=== PATIENT | female | born 1965 | race Caucasian/White ===

== ENCOUNTER → 2017-04-28 | Outpatient (CLI) | payer MEDICAID ==
[~2017-04-28] MED LIST: ALBU6.7H INH; ALBUS PO; ATEN25TA PO; BACL10TA PO; CLON0.5T PO; CYAN25005 PO; CYMB60CA PO; DAPA1TAB3 PO; DIAZ5 PO; DICL50TA PO; DICL75TA PO; FENO145T2 PO; FLUT1SPR5 EACH NARE; FLUTI110I INH; FLUTI220I INH; GABA800T PO; HUMI40KI SQ; IBUP200T2 PO; LEVO25TA4 PO; LYRI100C PO; MELO7.5T4 PO; METF850 PO; METH750T PO; MODA200T12 PO; MONT10TA2 PO; NIAC500T5 PO; OLAN5TAB PO; PANTANASE NASAL; PATA0.6S NASAL; PRAV80TA2 PO; SPIRCAP INH; SULF500T PO; VOLT1GEL4 TOPICAL; WELLTAB39 PO; ZETI10TA5 PO
[2017-04-28 11:30] LABS: HEMATOCRIT 44.7 % (35.0-46.0); MEAN CELL VOLUME 90.4 FL (80.0-100.0); MEAN CORPUSCULAR HEMOGLOBIN 29.6 PG (27.0-34.0); MEAN CORPUSCULAR HGB CONC 32.7 % (32.0-36.0); PLATELET COUNT 440 TH/MM3 (150-450); RED BLOOD COUNT 4.94 MIL/MM3 (4.00-5.30); WHITE BLOOD COUNT 29.5 TH/MM3 (4.0-11.0)
[2017-04-28 11:33] LABS: HEMO FLAGS AUTO DIFF
[2017-04-28 12:04] LABS: NEUTROPHIL # MANUAL DIFF 22.4 TH/MM3 (1.8-7.7); PLATELET ESTIMATE SMEAR NORMAL (NORMAL); PLATELET MORPHOLOGY NORMAL (NORMAL); POLYS (SEG NEUTROPHILS) 76 % (16-70); SCAN/DIFF FINAL DIFF MANUAL; WBC DIFF SAMPLE 100
--- NOTE | 2017-04-29 08:41 | EKG ---
Date Performed: 04/28/2017 Time Performed: 11:04:16 PTAGE: 51 years EKG: SINUS BRADYCARDIA MODERATE INTRAVENTRICULAR CONDUCTION DELAY BORDERLINE ECG NO PREVIOUS TRACING DOCTOR: Altaf Najera Interpretating Date/Time 04/29/2017 08:35:00
== END ==
LOC: PHPRE 10:17
PROVIDERS: ATTEND Orthopaedic Surgery
DX: Z01.812 Encounter for preprocedural laboratory examination (principal); Z01.810 Encounter for preprocedural cardiovascular examination; R94.31 Abnormal electrocardiogram [ECG] [EKG]
CPT/HCPCS: 36415; 85007; 85027; 93005

== ENCOUNTER → 2017-05-01 | Day surgery (SDC) | payer MEDICAID ==
[~2017-05-01] VITALS: Ht 162.6 cm; Wt 63.0 kg
[~2017-05-01] MED LIST changes: +ACETAMINOPHEN/HYDROcodone 325 MG/5 MG TAB PO PRN; -ALBUS PO; +BUPIVACAINE/EPINEPHRINE 0.5% PF 10 ML VIAL INFIL ONE; +CHLORHEXIDINE GLUCONATE 2 % 1 PACK (2 CLOTHS) TOPICAL PRN; +CHLORHEXIDINE GLUCONATE 4% SOLN 120 ML BTL TOPICAL SCH; -CYAN25005 PO; -DIAZ5 PO; +FAMOTIDINE 20 MG/2 ML VIAL ONE; -FLUT1SPR5 EACH NARE; -FLUTI110I INH; -GABA800T PO; -IBUP200T2 PO; +INSULIN HUMAN REGULAR 1,000 UNITS/10 ML VIAL SQ PRN; +KETOROLAC TROMETHAMINE 30 MG/ML (IVP) VIAL IM PRN; +LACTATED RINGER'S 1000 ML IV PRN; -MELO7.5T4 PO; -METF850 PO; -METH750T PO; +METOPROLOL TARTRATE 25 MG TAB PO PRN; +MIDAZOLAM HCL 2 MG/2 ML VIAL ONE; -MODA200T12 PO; -MONT10TA2 PO; +NEOSTIGMINE 3 MG/3 ML SYR IV ONE; -NIAC500T5 PO; +ONDANSETRON HCL 4 MG/2 ML VIAL IV PUSH ONE; +ONDANSETRON HCL 4 MG/2 ML VIAL IV PUSH PRN; -PANTANASE NASAL; +POVIDONE IODINE 5% (ANTISEPSIS KIT) 4 APPLICATIONS EACH NARE PRN; +PROPOFOL 200 MG/20 ML AMP IV ONE; +SODIUM CHLORID 0.9% 500 ML IV PRN; -SULF500T PO; +VANCOMYCIN 1000 MG/NS 250 ML (for <70 kg) IV SCH; +ceFAZolin 2 GM PREMIX 50 ML IV SCH; +fentaNYL CITRATE 250 MCG/5 ML AMP ONE
[2017-05-01 09:55] VITALS: BP 122/70; PULSE 59; RESP 20; TEMP 97.9; O2SAT 97
[2017-05-01 12:28] VITALS: BP 121/66; PULSE 68; RESP 16; TEMP 98; O2SAT 99
--- NOTE | 2017-05-03 06:18 | MP ---
cc: DUSTIN SOTO M.D. DATE OF SURGERY: 05/01/2017 PREOPERATIVE DIAGNOSIS Tear rotator cuff right shoulder. POSTOPERATIVE DIAGNOSIS Tear rotator cuff right shoulder. PROCEDURE Anterior decompression with repair of rotator cuff avulsion. SURGEON: Dr. Dustin Soto DETAILS OF PROCEDURE: The patient was placed on the operating table in the supine position. Adequate general anesthesia was administered by the anesthesiologist. The patient was then placed in a modified beach-chair position and the right shoulder was prepped and draped in the usual sterile fashion. A 1-inch incision was made over the acromial process following a subcutaneous injection of a few cc's of 0.5% Marcaine with epinephrine. Subcutaneous tissue was incised down to the underlying fascia which was also incised and the deltoid insertion along the anterior border of the acromial process was identified and transected at its point of origin, protecting the underlying soft tissue and coracoacromial ligament with a retractor. The remaining subdeltoid bursa was excised as well as the remnants of the coracoacromial ligament which was thickened. The acromial process was then decompressed with a partial acromioplasty utilizing a high-speed power bur protecting the underlying rotator cuff. We were now able to expose the full rotator cuff by rotation. She did have a full avulsion of the supraspinatus and this was repairable and could be brought back down to the greater tuberosity. A bioabsorbable corkscrew anchor was placed in the area of insertion and the #2 FiberWire attached to the anchor was passed through the rotator cuff in a [id number] fashion using both sutures. A watertight closure was obtained. The area was thoroughly irrigated and the deltoid muscle reinserted with #1 Tycron. Subcutaneous tissue was closed with interrupted 3-0 Vicryl and skin edges approximated with a running subcuticular 4-0 Vicryl. We then placed some additional Marcaine since she did not have a block, totaling 10 cc of 0.5% with epinephrine. The skin edges were approximated with subcuticular 4-0 Vicryl and the Steri-Strips were applied over that. Small dressing was applied over the shoulder after Steri-Strips were placed. The patient was then immobilized in a sling and swath immobilizer. Sponge count, needle counts, instrument counts were reported correct x2. The estimated blood loss was minimal, and electrocautery was used for hemostasis. The patient was transferred to the Recovery Room in satisfactory and stable condition. MD REE Varner/KARL /11:23 AM /5:36 AM
== END | disposition home or self-care (01) ==
LOC: PHSDC 09:08
PROVIDERS: ATTEND Orthopaedic Surgery
DX: M75.121 Complete rotator cuff tear or rupture of right shoulder, not specified as traumatic (principal); I10 Essential (primary) hypertension; E78.00 Pure hypercholesterolemia, unspecified; E11.9 Type 2 diabetes mellitus without complications; M19.90 Unspecified osteoarthritis, unspecified site; G62.9 Polyneuropathy, unspecified; E03.9 Hypothyroidism, unspecified; J44.9 Chronic obstructive pulmonary disease, unspecified; G47.30 Sleep apnea, unspecified; F17.210 Nicotine dependence, cigarettes, uncomplicated; Z79.51 Long term (current) use of inhaled steroids; Z79.899 Other long term (current) drug therapy
CPT/HCPCS: 01630; 23420; C1713; J0690; J2250; J2405; J2710; J3010; J3370; J7050; J7120